=== PATIENT | female | born 1975 | race Caucasian/White ===

== ENCOUNTER 2017-05-17 19:10 | Inpatient (IN) | payer BC ==
[~2017-05-17] VITALS: Ht 165.1 cm; Wt 69.1 kg
[2017-05-17] VITALS (7 sets, daily range): BP systolic 113–128; BP diastolic 60–72; PULSE 16–65; TEMP 98.6–98.8
[2017-05-17] MEDS ORDERED: PRENATAL MVI (19:45)
[2017-05-17 20:43] LABS: BASO % 0.3 % (0.0-2.0); EOS # 0.1 (0.0-0.7); EOS % 1.1 % (0-4.0); GRAN # 7.9 (1.4-6.5); GRAN % 70.3 % (42.2-75.2); HEMOGLOBIN 12.2 g/dl (12.5-16.0); LYMPH # 2.3 (1.2-3.4); LYMPH % 20.4 % (20.0-51.0); MEAN CELL VOLUME 92 fl (80.0-100.0); MEAN CORPUSCULAR HEMOGLOBIN 31 pg (27.0-31.0); MEAN CORPUSCULAR HGB CONC 33 g/dl (33.0-37.0); MEAN PLATELET VOLUME 11.9 fl (7.4-10.4); MONO # 0.8 (0.1-0.6); MONO % 6.9 % (1.7-9.3); PLATELET COUNT 196 K/mm3 (130-400); RED BLOOD COUNT 3.98 M/mm3 (4.10-5.30); WHITE BLOOD COUNT 11.3 K/mm3 (4.8-10.8)
[2017-05-17 20:44] LABS: HEMATOCRIT 36.7 % (37.0-47.0)
[2017-05-18] VITALS (58 sets, daily range): BP systolic 101–156; BP diastolic 49–83; PULSE 16–81; TEMP 97.3–98.9
[2017-05-19] VITALS: BP 111/55; PULSE 53; TEMP 97.8
[2017-05-19 03:15] VITALS: BP 111/55; PULSE 53; TEMP 98.6
[2017-05-19 06:34] LABS: BASO % 0.2 % (0.0-2.0); EOS % 0.2 % (0-4.0); GRAN % 80.9 % (42.2-75.2); LYMPH # 1.7 (1.2-3.4); LYMPH % 12.2 % (20.0-51.0); MEAN CELL VOLUME 93 fl (80.0-100.0); MEAN CORPUSCULAR HGB CONC 33 g/dl (33.0-37.0); MEAN PLATELET VOLUME 11.2 fl (7.4-10.4); MONO # 0.8 (0.1-0.6); MONO % 5.8 % (1.7-9.3); PLATELET COUNT 179 K/mm3 (130-400); RED BLOOD COUNT 3.77 M/mm3 (4.10-5.30); WHITE BLOOD COUNT 13.5 K/mm3 (4.8-10.8)
[2017-05-19 06:35] LABS: HEMATOCRIT 35.1 % (37.0-47.0); HEMOGLOBIN 11.5 g/dl (12.5-16.0); MEAN CORPUSCULAR HEMOGLOBIN 31 pg (27.0-31.0)
[2017-05-19 06:46] LABS: ADJUSTED CALCIUM 9.4 mg/dL (8.4-10.2); ALBUMIN 2.7 gm/dL (3.5-5.0); BILIRUBIN,TOTAL 0.3 mg/dL (0.0-1.0); CALCIUM 8.4 mg/dL (8.4-10.2); CREATININE, serum 0.77 mg/dL (0.52-1.25); TOTAL PROTEIN 5.5 gm/dL (6.4-8.2)
[2017-05-19 08:30] VITALS: BP 102/50; PULSE 65; TEMP 98.1
[2017-05-19] MEDS ORDERED: IBU600 MG PO (08:42)
[2017-05-19] MEDS ORDERED: PERCOCET 325 MG1 TA2 PO (08:42)
[2017-05-19 12:00] VITALS: BP 100/50; PULSE 61; TEMP 97.8
[2017-05-19 16:15] VITALS: BP 99/50; PULSE 58; TEMP 97.2
[2017-05-19 20:30] VITALS: BP 106/60; PULSE 60; TEMP 98
[2017-05-20 07:34] VITALS: BP 106/74; PULSE 72; TEMP 98
[2017-05-20 17:00] VITALS: BP 117/49; PULSE 65; TEMP 97.9
[2017-05-20 20:00] VITALS: BP 123/64; PULSE 55; TEMP 98.7
[2017-05-21 07:57] VITALS: BP 103/50; PULSE 49
== END 2017-05-21 13:50 | disposition home or self-care (01) | DRG 765 ==
LOC: LDRO 19:10 → OB 19:25 → LDR 19:25 → OB 05-18 19:00
PROVIDERS: Obstetrics & Gynecology; Student in an Organized Health Care Education/Training Program
PROC: 10D00Z1 Extraction of Products of Conception, Low, Open Approach (ICD-10-PCS; principal; 2017-05-18)
PROC: 3E033VJ Introduction of Other Hormone into Peripheral Vein, Percutaneous Approach (ICD-10-PCS; 2017-05-18)
DX: O48.0 Post-term pregnancy (principal); O99.42 Diseases of the circulatory system complicating childbirth; I45.6 Pre-excitation syndrome; O69.81X0 Labor and delivery complicated by cord around neck, without compression, not applicable or unspecified; Z3A.40 40 weeks gestation of pregnancy; Z37.0 Single live birth
CPT/HCPCS: J0595; J0690; J1885; J2270; J2405; J2590; J7120

== ENCOUNTER → 2019-05-09 | Outpatient (CLI) | payer BC ==
[~2019-05-09] MED LIST: IBU600 MG PO; PERCOCET 325 MG1 TA2 PO; PRENATAL MVI
== END ==
LOC: MC.RAD 05-08 10:45
DX: Z12.31 Encounter for screening mammogram for malignant neoplasm of breast (principal)

== ENCOUNTER → 2021-03-31 | Outpatient (CLI) | payer OTHER | LOC: MC.RAD 10:50 | DX: Z12.31 Encounter for screening mammogram for malignant neoplasm of breast (principal) ==